=== PATIENT | male | born 1970 | race Hispanic/Latino ===

== ENCOUNTER 2019-04-06 12:27 | Emergency (ER) | payer SELFPAY ==
[2019-04-06] MEDS ORDERED: NA CHLORIDE 0.9% 1,000 ML ONE (13:03)
--- NOTE | 2019-04-06 13:09 | RAD REPORT ---
EXAM DESCRIPTION: CT - Head Brain Wo Cont - 04/06/2019 12:59 pm CLINICAL HISTORY: Dizziness;Headache Headache, drowsiness COMPARISON: No comparisons TECHNIQUE: All CT scans are performed using dose optimization technique as appropriate and may inclu de automated exposure control or mA/KV adjustment according to patient size. FINDINGS: No intracranial hemorrhage, hydrocephalus or extra-axial fluid collection.No areas of brai n edema or evidence of midline shift. The paranasal sinuses and mastoids are clear. The calvarium is intact. IMPRESSION: No acute intracranial abnormality.
[2019-04-06 13:20] LABS: Basophils % 0.3 % (0-1.3); Hematocrit 36.9 % (39.6-49.0); Lymphocytes % 17.1 % (15.3-44.8); MPV 8.5 fL (7.6-11.3); RBC Red Blood Cell Count 3.96 M/uL (4.33-5.43)
[2019-04-06 13:26] LABS: ALT/SGPT 54 U/L (12-78); AST/SGOT 25 U/L (15-37); Alkaline Phosphatase 90 U/L (45-117); BUN Blood Urea Nitrogen 13 mg/dL (7-18); Bicarbonate 25 mmol/L (21-32); Bilirubin Direct 0.2 mg/dL (0-0.2); Bilirubin Total 0.7 mg/dL (0.2-1.0); Glucose Level 119 mg/dL (74-106); Magnesium 2.3 mg/dL (1.8-2.4); NT PRO-BNP 53 pg/mL (<125); Potassium 4.1 mmol/L (3.5-5.1); Protein, Total 7.1 g/dL (6.4-8.2); Sodium Level 140 mmol/L (136-145); Troponin (Emerg Dept Use Only) < 0.02 ng/mL (0.0-0.045)
--- NOTE | 2019-04-06 13:34 | RAD REPORT ---
EXAM DESCRIPTION: RAD - Chest Single View - 04/06/2019 1:21 pm CLINICAL HISTORY: dizziness Chest pain. COMPARISON: No comparisons FINDINGS: Portable technique limits examination quality. The lungs are grossly clear. The heart is normal in size. Multi lead pacer/defibrillator device is pr esent. IMPRESSION: No acute intrathoracic process suspected.
--- NOTE | 2019-04-06 14:41 | EKG ---
Test Date: 2019-04-06 Test Time: 12:43:04 Email Designer: KAYLEEN MEASUREMENT RESULTS: Intervals: Rate: 80 NC: 162 QRSD: 96 QT: 390 QTc: 449 [place]: P: 54 NC: 162 QRS: 43 T: -9 INTERPRETIVE STATEMENTS: Normal sinus rhythm Cannot rule out Inferior infarct, age undetermined Abnormal ECG Compared to ECG 09/13/2003 11:17:00 Myocardial infarct finding now present Sinus arrhythmia no longer present Electronically Signed On 04-06-19 14:40:50 CDT by Ayush Haas
--- NOTE | 2019-04-06 14:55 | ER ---
Nurse's Notes [facility] Name: Agustín Vance Age: 48 yrs Sex: Male : 1970 Arrival Date: 04/06/2019 Time: 12:29 Bed 26 Private MD: Diagnosis: Dizziness and giddiness;Headache Presentation: 04/06 12:29 Presenting complaint: EMS states: pt was lightheaded and dizzy about 45 minutes ago. Pt ca1 is dehydrated. Denies chest pain but has a history of [place] on 2014. Pt has pacemaker defibrillator. BP on scene was 186/98, went down to 138/89. He took 1 aspirin 81mg at this morning and we give him another 3. Transition of care: patient was not received from another setting of care. Onset of symptoms was April 06, 2019 at 11:45. Risk Assessment: Do you want to hurt yourself or someone else? Patient reports no desire to harm self or others. Initial Sepsis Screen: Does the patient meet any 2 criteria? No. Patient's initial sepsis screen is negative. Does the patient have a suspected source of infection? No. Patient's initial sepsis screen is negative. Care prior to arrival: Medication(s) given: ASA, 81 mg, x 3, Normal saline infusion, 500 mL, IV initiated. 20 GA, in the left antecubital area, Glucose check: 143. 12:29 Method Of Arrival: EMS: [facility] ca1 12:29 Acuity: ALFREDO 3 ca1 Historical: - Allergies: 12:34 No Known Allergies; ca1 - Home Meds: 12:34 blood thinner [Active]; Lisinopril Oral [Active]; Metoprolol Tartrate Oral [Active]; ca1 - PMHx: 12:34 Myocardial infarction; Pacemaker; Hypertension; ca1 - PSHx: 12:34 Cholecystectomy; ca1 - Immunization history:: Adult Immunizations not up to date. - Social history:: Smoking status: Patient/guardian denies using tobacco. - Ebola Screening: : Patient negative for fever greater than or equal to 101.5 degrees Fahrenheit, and additional compatible Ebola Virus Disease symptoms Patient denies exposure to infectious person Patient denies travel to an Ebola-affected area in the 21 days before illness onset No symptoms or risks identified at this time. Screenin:35 Abuse screen: Denies threats or abuse. Denies injuries from another. Nutritional ca1 screening: No deficits noted. Tuberculosis screening: No symptoms or risk factors identified. Fall Risk IV access (20 points). Assessment: 12:35 General: Appears in no apparent distress. comfortable, Behavior is calm, cooperative, ca1 appropriate for age. Pain: Denies pain. Neuro: Level of Consciousness is awake, alert, obeys commands, Oriented to person, place, time, situation, Reports dizziness. Cardiovascular: Reports lightheadedness, Heart tones S1 S2 present Capillary refill < 3 seconds Patient's skin is warm and dry. Pulses Rhythm is Respiratory: Airway is patent Respiratory effort is even, unlabored, Respiratory pattern is regular, symmetrical, Breath sounds are clear bilaterally. GI: Abdomen is round non-distended, Bowel sounds present X 4 quads. Abd is soft and non tender X 4 quads. : No deficits noted. No signs and/or symptoms were reported regarding the genitourinary system. EENT: No deficits noted. No signs and/or symptoms were reported regarding the EENT system. Derm: Skin is intact, is healthy with good turgor, Skin is pink, warm \T\ dry. Musculoskeletal: Circulation, motion, and sensation intact. Capillary refill < 3 seconds, Range of motion: intact in all extremities. 13:21 Reassessment: Patient appears in no apparent distress at this time. Patient and/or ca1 family updated on plan of care and expected duration. Pain level reassessed. Patient is alert, oriented x 3, equal unlabored respirations, skin warm/dry/pink. 14:30 Reassessment: Patient appears in no apparent distress at this time. Patient is alert, ca1 oriented x 3, equal unlabored respirations, skin warm/dry/pink. 15:05 Reassessment: Patient appears in no apparent distress at this time. Patient is alert, ca1 oriented x 3, equal unlabored respirations, skin warm/dry/pink. Vital Signs: 12:34 Weight 113.4 kg (R); Height 5 ft. 11 in. (180.34 cm) (R); Pain 0/10; ca1 12:38 BP 141 / 81; Pulse 73; Resp 15; Temp 99.2(O); Pulse Ox 100% on R/A; ca1 12:44 BP 149 / 82 Supine; Pulse 75; Pulse Ox 100% on R/A; ca1 12:47 BP 154 / 82 Sitting; Pulse 79; Pulse Ox 100% on R/A; ca1 12:50 BP 158 / 85 Standing; Pulse 74; Pulse Ox 100% ; ca1 13:23 BP 145 / 80; Pulse 74; Resp 16 S; Pulse Ox 100% on R/A; ca1 14:30 BP 125 / 63; Pulse 69; Resp 15 S; Pulse Ox 97% on R/A; ca1 15:05 BP 134 / 76; Pulse 70; Resp 17 S; Pulse Ox 97% on R/A; ca1 12:34 Body Mass Index 34.87 (113.40 kg, 180.34 cm) ca1 ED Course: 12:29 Patient arrived in ED. ca1 12:31 Odin Rizo PA is PHCP. cp 12:31 Miguel Angel Macedo MD is Attending Physician. cp 12:32 Triage completed. ca1 12:34 Arm band placed on right wrist. ca1 12:35 Patient has correct armband on for positive identification. Placed in gown. Bed in low ca1 position. Call light in reach. Side rails up X 1. patient monitor on. Pulse ox on. NIBP on. Warm blanket given. 12:35 No provider procedures requiring assistance completed. Maintain EMS IV. Dressing ca1 intact. Good blood return noted. Site clean \T\ dry. Gauge \T\ site: g20 LAC. 12:37 Jacquelin Marquez, RN is Primary Nurse. ca1 12:55 Initial lab(s) drawn, by me, sent to lab. EKG done, by limited radiology technician. reviewed by Odin Rizo jp3 PA. Patient maintains SpO2 saturation greater than 95% on room air. 13:01 CT Head Brain wo Cont In Process Unspecified. EDMS 13:23 XRAY Chest (1 view) In Process Unspecified. EDMS 15:06 IV discontinued, intact, bleeding controlled, No redness/swelling at site. Pressure ca1 dressing applied. Administered Medications: 13:04 Drug: NS 0.9% 1000 ml Route: IV; Rate: 1000 ml/hr; Site: left antecubital; ca1 Outcome: 14:54 Discharge ordered by . cp 15:06 Discharged to home ambulatory, with friend. ca1 15:06 Condition: stable 15:06 Discharge instructions given to patient, Instructed on discharge instructions, follow up and referral plans. medication usage, Demonstrated understanding of instructions, follow-up care, medications, Prescriptions given X 2. 15:07 Patient left the ED. ca1 Signatures: Dispatcher [employer] EDMS Odin Rizo PA PA cp Pisarski, Jacob 3 Jacquelin Marquez RN RN ca1
--- NOTE | 2019-04-06 14:55 | EDPHYS ---
Physician Documentation [facility] Name: Agustín Vance Age: 48 yrs Sex: Male : 1970 Arrival Date: 04/06/2019 Time: 12:29 Bed 26 Private MD: ED Physician Miguel Angel Macedo HPI: 04/06 12:40 This 48 yrs old Male presents to ER via EMS with complaints of Dizziness. cp 12:40 The patient presents with lightheadedness. Onset: The symptoms/episode began/occurred cp this morning. Context: occurred at work, occurred while the patient was working outside. just prior to the episode the patient experienced no apparent symptoms. Associated signs and symptoms: Pertinent positives: headache, slight headache, patient reports he felt blood pressure was elevated, Pertinent negatives: abdominal pain, blurred vision, chest pain, diaphoresis, focal weakness, head injury, palpitations, shortness of breath, syncope, vomiting. Severity of symptoms: in the emergency department the symptoms have improved mildly. Patient's baseline: Neuro: alert and fully oriented, Motor: no deficits, Ambulation: walks without assistance, Speech: normal. Historical: - Allergies: 12:34 No Known Allergies; ca1 - Home Meds: 12:34 blood thinner [Active]; Lisinopril Oral [Active]; Metoprolol Tartrate Oral [Active]; ca1 - PMHx: 12:34 Myocardial infarction; Pacemaker; Hypertension; ca1 - PSHx: 12:34 Cholecystectomy; ca1 - Immunization history:: Adult Immunizations not up to date. - Social history:: Smoking status: Patient/guardian denies using tobacco. - Ebola Screening: : Patient negative for fever greater than or equal to 101.5 degrees Fahrenheit, and additional compatible Ebola Virus Disease symptoms Patient denies exposure to infectious person Patient denies travel to an Ebola-affected area in the 21 days before illness onset No symptoms or risks identified at this time. ROS: 12:45 Constitutional: Negative for body aches, chills, fever, poor PO intake. cp 12:45 Eyes: Negative for injury, pain, redness, and discharge. cp 12:45 ENT: Negative for drainage from ear(s), ear pain, sore throat, difficulty swallowing, difficulty handling secretions. 12:45 Cardiovascular: Negative for chest pain, edema, palpitations. 12:45 Respiratory: Negative for cough, shortness of breath, wheezing. 12:45 Abdomen/GI: Negative for abdominal pain, nausea, vomiting, and diarrhea, constipation, black/tarry stool, rectal bleeding. 12:45 : Negative for urinary symptoms. 12:45 Skin: Negative for rash. 12:45 Neuro: Positive for dizziness, headache, Negative for altered mental status, gait disturbance, numbness, speech changes, syncope, weakness. 12:45 All other systems are negative. Exam: 12:50 ECG was reviewed by the Attending Physician. cp 12:52 Constitutional: The patient appears in no acute distress, alert, awake, cp non-diaphoretic, non-toxic, well developed, well nourished, obese. 12:52 Head/Face: Normocephalic, atraumatic. Eyes: Pupils equal round and reactive to light, cp extra-ocular motions intact. Lids and lashes normal. Conjunctiva and sclera are non-icteric and not injected. Cornea within normal limits. Periorbital areas with no swelling, redness, or edema. ENT: Nares patent. No nasal discharge, no septal abnormalities noted. Tympanic membranes are normal and external auditory canals are clear. Oropharynx with no redness, swelling, or masses, exudates, or evidence of obstruction, uvula midline. Mucous membranes moist. Chest/axilla: Normal chest wall appearance and motion. Nontender with no deformity. No lesions are appreciated. Cardiovascular: Regular rate and rhythm with a normal S1 and S2. No gallops, murmurs, or rubs. Normal PMI, no JVD. No pulse deficits. Respiratory: Lungs have equal breath sounds bilaterally, clear to auscultation and percussion. No rales, rhonchi or wheezes noted. No increased work of breathing, no retractions or nasal flaring. Abdomen/GI: Soft, non-tender, with normal bowel sounds. No distension or tympany. No guarding or rebound. No evidence of tenderness throughout. Neuro: Awake and alert, GCS 15, oriented to person, place, time, and situation. Cranial nerves II-XII grossly intact. Motor strength 5/5 in all extremities. Sensory grossly intact. Cerebellar exam normal. Normal gait. 12:52 Back: pain, is absent, ROM is normal. Vital Signs: 12:34 Weight 113.4 kg (R); Height 5 ft. 11 in. (180.34 cm) (R); Pain 0/10; ca1 12:38 BP 141 / 81; Pulse 73; Resp 15; Temp 99.2(O); Pulse Ox 100% on R/A; ca1 12:44 BP 149 / 82 Supine; Pulse 75; Pulse Ox 100% on R/A; ca1 12:47 BP 154 / 82 Sitting; Pulse 79; Pulse Ox 100% on R/A; ca1 12:50 BP 158 / 85 Standing; Pulse 74; Pulse Ox 100% ; ca1 13:23 BP 145 / 80; Pulse 74; Resp 16 S; Pulse Ox 100% on R/A; ca1 14:30 BP 125 / 63; Pulse 69; Resp 15 S; Pulse Ox 97% on R/A; ca1 15:05 BP 134 / 76; Pulse 70; Resp 17 S; Pulse Ox 97% on R/A; ca1 12:34 Body Mass Index 34.87 (113.40 kg, 180.34 cm) ca1 MDM: 12:43 Patient medically screened. 14:53 Data reviewed: vital signs, nurses notes, lab test result(s), EKG, radiologic studies, cp CT scan, plain films. 14:53 Test interpretation: by ED physician or midlevel provider: ECG. Counseling: I had a cp detailed discussion with the patient and/or guardian regarding: the historical points, exam findings, and any diagnostic results supporting the discharge/admit diagnosis, lab results, radiology results, to return to the emergency department if symptoms worsen or persist or if there are any questions or concerns that arise at home. Response to treatment: the patient's symptoms have markedly improved after treatment, and as a result, I will discharge patient. ED course: VSS. Patient reports symptoms improved. Will discharge to home for continued monitoring. 04/06 12:44 Order name: Basic Metabolic Panel; Complete Time: 13:44 cp 04/06 12:44 Order name: CBC with Diff; Complete Time: 13:44 cp 04/06 12:44 Order name: LFT's; Complete Time: 13:44 cp 04/06 12:44 Order name: Magnesium; Complete Time: 13:44 cp 04/06 12:44 Order name: NT PRO-BNP; Complete Time: 13:44 cp 04/06 12:44 Order name: PT-INR; Complete Time: 13:44 cp 04/06 12:35 Order name: Orthostatics; Complete Time: 13:23 cp 04/06 12:35 Order name: EKG; Complete Time: 12:37 cp 04/06 12:35 Order name: EKG - Nurse/Tech; Complete Time: 12:38 cp 04/06 12:44 Order name: Troponin (emerg Dept Use Only); Complete Time: 13:44 cp 04/06 12:44 Order name: XRAY Chest (1 view); Complete Time: 13:44 cp 04/06 12:44 Order name: Cardiac monitoring; Complete Time: 12:59 cp 04/06 12:44 Order name: CT Head Brain wo Cont; Complete Time: 13:44 cp 04/06 12:44 Order name: IV Saline Lock; Complete Time: 12:59 cp 04/06 12:44 Order name: Labs collected and sent; Complete Time: 12:59 cp 04/06 12:44 Order name: O2 Per Protocol; Complete Time: 12:59 cp 04/06 12:44 Order name: O2 Sat Monitoring; Complete Time: 12:59 cp EC:50 Rate is 80 beats/min. Rhythm is regular. CA interval is normal. QRS interval is normal. cp QT interval is normal. T waves are Inverted in lead III. Interpreted by me. Reviewed by me. Administered Medications: 13:04 Drug: NS 0.9% 1000 ml Route: IV; Rate: 1000 ml/hr; Site: left antecubital; ca1 Disposition: 04/07 08:54 Co-signature as Attending Physician, Miguel Angel Macedo MD I agree with the assessment and kdr plan of care. Disposition: 04/06/19 14:54 Discharged to Home. Impression: Dizziness and giddiness, Headache. - Condition is Stable. - Discharge Instructions: Dizziness, General Headache Without Cause. - Prescriptions for Ibuprofen 800 mg Oral Tablet - take 1 tablet by ORAL route every 8 hours As needed take with food; 30 tablet. Meclizine 25 mg Oral Tablet - take 1 tablet by ORAL route every 8 hours As needed; 30 tablet. - Work release form, Medication Reconciliation Form, Thank You Letter, Antibiotic Education, Prescription Opioid Use form. - Follow up: Private Physician; When: 2 - 3 days; Reason: Recheck today's complaints. - Problem is new. - Symptoms have improved. Signatures: Dispatcher [employer] EDMS Miguel Angel Macedo MD MD kdr Odin Rizo PA PA cp Jacquelin Marquez RN RN ca1 Corrections: (The following items were deleted from the chart) 04/06 15:07 14:54 04/06/2019 14:54 Discharged to Home. Impression: Dizziness and giddiness; ca1 Headache. Condition is Stable. Forms are Medication Reconciliation Form, Thank You Letter, Antibiotic Education, Prescription Opioid Use. Follow up: Private Physician; When: 2 - 3 days; Reason: Recheck today's complaints. Problem is new. Symptoms have improved. cp
[2019-04-06 15:12] VITALS: TEMP 99.2
[2019-04-06 15:19] VITALS: O2SAT 97
[2019-04-06 15:20] VITALS: BP 134/76
== END 2019-04-06 15:07 | disposition home or self-care (01) ==
LOC: ER 12:27
DX: R51 Headache (principal); I10 Essential (primary) hypertension; I25.2 Old myocardial infarction; Z79.01 Long term (current) use of anticoagulants; Z95.0 Presence of cardiac pacemaker
CPT/HCPCS: 36415; 70450; 71045; 80048; 80076; 83735; 83880; 84484; 85025; 85610; 93005; 99285; J7030